=== PATIENT | male | born 1955 | race Caucasian/White ===

== ENCOUNTER 2017-07-14 16:04 | Observation (INO) | payer OTHER ==
[~2017-07-14] VITALS: Ht 180.3 cm; Wt 122.5 kg
--- NOTE | ~2017-07-14 | EKG ---
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 : 1955 Requested By: Frieda Nascimento Order Number: [id number] MD: Neville Bashir Measurements Intervals [place] Rate: 66 P: 85 [place]: 206 QRS: 81 QRSD: 107 T: 37 QT: 414 QTc: 434 Interpretive Statements Sinus rhythm Probable left atrial enlargement Borderline right axis deviation No previous ECG available for comparison Electronically Signed On 07-14-2017 18:20:25 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
[~2017-07-14 16:04] MED LIST: LISINOPRIL10 MG PO; LYRICA 75 MG CA75 MG PO; OPANA ER10 M1 PO; OXYCONTIN15 MG PO
[2017-07-14 16:13] VITALS: BP 175/84
[2017-07-14] MEDS ORDERED: METFORMIN HCL500 MG PO (17:05)
[2017-07-14] MEDS ORDERED: ZOFRAN ODT4 MG DISSOLVE (17:06)
[2017-07-14] MEDS ORDERED: PHENERGAN 25 MG25 M1 PO (17:07)
[2017-07-14 17:08] LABS: ABSOLUTE NEUTROPHILS 6.1 thou/uL (1.4-8.2); BASOPHILS 0.9 % (0.0-2.0); EOSINOPHILS 0.3 % (0.0-3.0); HEMATOCRIT 40.1 % (42.0-52.0); HEMOGLOBIN 13.1 gm/dL (14.0-18.0); LYMPHOCYTES 19.2 % (24.0-44.0); MCH 26.6 pg (26.0-34.0); MCHC 32.8 g/dL (28.0-37.0); MCV 81.3 fL (80.0-100.0); MONOCYTES 9.3 % (1.0-8.0); PLATELET COUNT 202 thou/uL (150-400); POLYS 70.3 % (36.0-66.0); RBC 4.93 mil/uL (4.50-6.00); RDW 16.5 % (10.5-14.5); WBC 8.7 thou/uL (4.0-11.0)
[2017-07-14 17:09] LABS: MANUAL DIFF NO
[2017-07-14] MEDS ORDERED: BENTYL 10 MG CA10 M1 PO (17:09)
[2017-07-14 18:20] LABS: URINE BILIRUBIN NEGATIVE (Negative); URINE BLOOD NEGATIVE (Negative); URINE COLOR YELLOW; URINE GLUCOSE-RANDOM* NEGATIVE (Negative); URINE KETONES NEGATIVE (Negative); URINE NITRITE NEGATIVE (Negative); URINE PROTEIN (DIPSTICK) TRACE (Negative); URINE SPECIFIC GRAVITY 1.025 (1.003-1.035); URINE UROBILINOGEN 0.2 E.U./dl (0.2-1.0)
[2017-07-14 18:52] LABS: ALBUMIN 3.2 g/dL (3.4-5.0); ALKALINE PHOSPHATASE 79 U/L (46-116); ANION GAP 4 mmol/L (7-16); BUN 15 mg/dL (7-18); CALCIUM 8.4 mg/dL (8.5-10.1); CHLORIDE 103 mmol/L (98-107); CO2 31 mmol/L (21-32); CREATININE 0.7 mg/dL (0.7-1.3); GLUCOSE 118 mg/dL (74-106); SGOT 83 U/L (15-37); SGPT 93 U/L (30-65); SODIUM 138 mmol/L (136-145); TOTAL BILIRUBIN 0.4 mg/dL (<0.1-1.0); TOTAL PROTEIN 7.1 g/dL (6.4-8.2); TROPONIN-I < 0.04 ng/mL (<0.06)
[2017-07-14 19:31] VITALS: BP 131/65
[2017-07-14 20:15] VITALS: BP 159/83
[2017-07-15 03:04] VITALS: BP 167/87
[2017-07-15 05:08] LABS: GLYCOHEMOGLOBIN (HGB A1C) 7.4 % (4.8-5.6)
[2017-07-15 08:00] VITALS: BP 178/96
[2017-07-15] MEDS ORDERED: FLAGYL500 MG PO (08:30)
[2017-07-15] MEDS ORDERED: PANTOPRAZOLE SO40 M1 PO (08:31)
[2017-07-15 12:17] VITALS: BP 178/96
== END 2017-07-15 13:05 | disposition home or self-care (01) ==
LOC: ER 16:04 → EROBS 19:04 → 4N 19:32
PROVIDERS: Hospitalist; Nurse Practitioner Family
DX: K52.9 Noninfective gastroenteritis and colitis, unspecified (principal); E86.0 Dehydration; R07.89 Other chest pain; E11.9 Type 2 diabetes mellitus without complications; I10 Essential (primary) hypertension

== ENCOUNTER 2019-07-09 16:15 | Emergency (ER) | payer OTHER ==
[~2019-07-09] VITALS: Ht 180.3 cm; Wt 132.9 kg
[~2019-07-09 16:15] MED LIST changes: +BENTYL 10 MG CA10 M1 PO; +FLAGYL500 MG PO; +METFORMIN HCL500 MG PO; +PANTOPRAZOLE SO40 M1 PO; +PHENERGAN 25 MG25 M1 PO; +ZOFRAN ODT4 MG DISSOLVE
[2019-07-09 16:55] LABS: URINE BILIRUBIN NEGATIVE (Negative); URINE BLOOD NEGATIVE (Negative); URINE CLARITY CLEAR; URINE COLOR YELLOW; URINE GLUCOSE-RANDOM* 3+ (Negative); URINE KETONES NEGATIVE (Negative); URINE LEUKOCYTES-REFLEX NEGATIVE (Negative); URINE NITRITE-REFLEX NEGATIVE (Negative); URINE PROTEIN (DIPSTICK) NEGATIVE (Negative); URINE UROBILINOGEN 0.2 E.U./dl (0.2-1.0)
[2019-07-09 18:02] LABS: ABSOLUTE NEUTROPHILS 6.6 thou/uL (1.4-8.2); BASOPHILS 1.1 % (0.0-2.0); EOSINOPHILS 2.3 % (0.0-3.0); HEMATOCRIT 40.9 % (42.0-52.0); HEMOGLOBIN 13.5 gm/dL (14.0-18.0); LYMPHOCYTES 20.5 % (24.0-44.0); MCH 27.9 pg (26.0-34.0); MCV 84.5 fL (80.0-100.0); MONOCYTES 10.2 % (1.0-8.0); PLATELET COUNT 223 thou/uL (150-400); POLYS 65.9 % (36.0-66.0); RBC 4.84 mil/uL (4.50-6.00); RDW 15.3 % (10.5-14.5); WBC 10.1 thou/uL (4.0-11.0)
[2019-07-09 18:14] LABS: CALCIUM 9.4 mg/dL (8.5-10.1); CREATININE 0.6 mg/dL (0.7-1.3); POTASSIUM 4.2 mmol/L (3.5-5.1)
[2019-07-09 18:20] LABS: ALBUMIN 3.4 g/dL (3.4-5.0); TOTAL BILIRUBIN 0.4 mg/dL (<0.1-1.0); TOTAL PROTEIN 7.8 g/dL (6.4-8.2)
[2019-07-09] MEDS ORDERED: LIDOCAINE PAIN1 EACH TRANSDERM (19:11)
[2019-07-09] MEDS ORDERED: CYCLOBENZAPRINE5 MG PO (19:11)
[2019-07-09 20:06] VITALS: BP 167/78
== END 2019-07-09 20:06 | disposition home or self-care (01) ==
LOC: ER 16:15
PROVIDERS: Emergency Medicine
DX: M54.5 Low back pain (principal); I10 Essential (primary) hypertension; Z96.642 Presence of left artificial hip joint; Z88.1 Allergy status to other antibiotic agents; Z88.6 Allergy status to analgesic agent